=== PATIENT | male | born 1985 | race Caucasian/White ===

== ENCOUNTER 2021-10-19 21:34 | Inpatient (IN) | payer MEDICAID ==
[~2021-10-19] VITALS: Ht 167.6 cm; Wt 57.7 kg
[~2021-10-19 21:34] MED LIST: CHLO25CA10 PO; FOLI-43 PO; THIA100T72 PO
[2021-10-19] MEDS ORDERED: SODIUM CHLORIDE 0.9% 1,000 ML IV ONE (22:15)
[2021-10-19 23:11] LABS: CHLORIDE 108 mEq/L (98-107)
[2021-10-19 23:12] LABS: BASOPHILS % 0.7 % (0.0-2.0); EOSINOPHILS % 1.5 % (0.0-5.0); HEMATOCRIT. 33.9 % (42.0-52.0); HEMOGLOBIN. 11.9 g/dL (14.0-18.0); LYMPHOCYTES % 50.1 % (20.0-50.0); MEAN CORPUSCULAR HEMOGLOBIN 36.2 pg (28.0-32.0); MEAN CORPUSCULAR VOLUME 103.1 fL (80.0-94.0); MEAN PLATELET VOLUME 9.5 fl (7.4-10.4); MONOCYTES % 6.9 % (2.0-8.0); NEUTROPHILS % 40.8 % (40.0-76.0); RED BLOOD CELL COUNT 3.29 mill/uL (4.7-6.1); RED CELL DISTRIBUTION WIDTH 13.8 % (11.6-14.6)
[2021-10-19 23:24] LABS: ETHANOL BLOOD 453 mg/dL
[2021-10-20] MEDS ORDERED: ONDANSETRON HCL 4MG/2ML INJ IV PRN (03:30)
[2021-10-20] MEDS ORDERED: GUAIFENESIN 200MG/10ML SUGAR FREE UDC PO PRN (03:30)
[2021-10-20] MEDS ORDERED: ACETAMINOPHEN 325MG TABLET PO PRN ×2 (03:30)
[2021-10-20] MEDS ORDERED: LORAZEPAM 2MG/ML CPJ IV PRN (03:30)
[2021-10-20] MEDS ORDERED: MAGNESIUM/ALUMINUM HYDROXIDE/SIMETHICONE 30ML UDC PO PRN (03:30)
[2021-10-20] MEDS ORDERED: CLONIDINE 0.1MG TABLET PO PRN (03:30)
[2021-10-20] MEDS: SODIUM CHLORIDE 0.45% 1,000 ML IV SCH ×3 (06:41→23:22)
[2021-10-20] MEDS: THIAMINE HCL 100MG TABLET PO SCH (06:42)
[2021-10-20 07:06] LABS: BASOPHILS % 0.7 % (0.0-2.0); EOSINOPHILS % 1.8 % (0.0-5.0); HEMATOCRIT. 35.1 % (42.0-52.0); HEMOGLOBIN. 12.3 g/dL (14.0-18.0); LYMPHOCYTES % 56.6 % (20.0-50.0); MEAN CORPUSCULAR HEMOGLOBIN 36.4 pg (28.0-32.0); MEAN CORPUSCULAR VOLUME 103.6 fL (80.0-94.0); MEAN PLATELET VOLUME 9.3 fl (7.4-10.4); MONOCYTES % 7.2 % (2.0-8.0); NEUTROPHILS % 33.7 % (40.0-76.0); RED BLOOD CELL COUNT 3.39 mill/uL (4.7-6.1); RED CELL DISTRIBUTION WIDTH 14.2 % (11.6-14.6)
[2021-10-20 07:08] LABS: CHLORIDE 112 mEq/L (98-107)
[2021-10-20 07:18] LABS: PHOSPHORUS 3.8 mg/dL (2.5-4.9)
[2021-10-20 07:27] LABS: PLATELET 21 x1000/uL (130-400)
[2021-10-20 08:55] LABS: CLARITY URINE CLEAR (CLEAR); COLOR URINE YELLOW (YELLOW); KETONES URINE NEGATIVE (NEGATIVE); LEUKOCYTE ESTERASE URINE NEGATIVE (NEGATIVE); NITRITE URINE NEGATIVE (NEGATIVE); OCCULT BLOOD URINE NEGATIVE (NEGATIVE); PH URINE 6.5 (4.5-8.0); PROTEIN URINE NEGATIVE (NEGATIVE); SPECIFIC GRAVITY URINE 1.012 (1.005-1.030)
[2021-10-20 09:24] LABS: *AMPHETAMINES SCREEN URINE NEGATIVE (NEGATIVE); *BARBITURATES SCREEN URINE NEGATIVE (NEGATIVE); *BENZODIAZEPINES SCREEN URINE NEGATIVE (NEGATIVE); *COCAINE SCREEN URINE NEGATIVE (NEGATIVE); OPIATES URINE SCREEN NEGATIVE (NEGATIVE); PHENCYCLIDINE URINE SCREEN NEGATIVE (NEGATIVE)
[2021-10-20 09:25] LABS: CANNABINOID URINE SCREEN NEGATIVE (NEGATIVE)
[2021-10-20 09:32] LABS: METHADONE URINE SCREEN NEGATIVE (NEGATIVE)
[2021-10-20 09:52] VITALS: BP 105/58
[2021-10-20 11:30] LABS: PLATELET 19 x1000/uL (130-400); PLATELET ESTIMATE MARKEDLY DECREASED
[2021-10-20 12:00] VITALS: BP 117/57
[2021-10-20] MEDS ORDERED: INFLUENZA VACCINE 05/PF 0.5 ML SYRINGE IM ONE (15:00)
[2021-10-20] MEDS ORDERED: PNEUMOCOCCAL 23-VAL P-SAC VAC 0.5 ML IM ONE (15:00)
[2021-10-20 16:00] VITALS: BP 107/55
[2021-10-20 20:00] VITALS: BP 111/60
[2021-10-21] VITALS (7 sets, daily range): BP systolic 110–120; BP diastolic 53–76
[2021-10-21 06:35] LABS: INR 1.6
[2021-10-21 06:50] LABS: BASOPHILS % 0.4 % (0.0-2.0); HEMATOCRIT. 32.9 % (42.0-52.0); HEMOGLOBIN. 11.5 g/dL (14.0-18.0); LYMPHOCYTES % 42.4 % (20.0-50.0); MEAN CORPUSCULAR HEMOGLOBIN 36.5 pg (28.0-32.0); MEAN CORPUSCULAR VOLUME 104.7 fL (80.0-94.0); MEAN PLATELET VOLUME 9.5 fl (7.4-10.4); MONOCYTES % 7.6 % (2.0-8.0); NEUTROPHILS % 47.6 % (40.0-76.0); RED BLOOD CELL COUNT 3.15 mill/uL (4.7-6.1); RED CELL DISTRIBUTION WIDTH 14.1 % (11.6-14.6)
[2021-10-21 07:34] LABS: CHLORIDE 105 mEq/L (98-107)
[2021-10-21 07:44] LABS: TOTAL IRON BINDING CAPACITY 244 ug/dL (250-450)
[2021-10-21 07:46] LABS: PHOSPHORUS 2.8 mg/dL (2.5-4.9)
[2021-10-21 08:53] LABS: PLATELET 15 x1000/uL (130-400)
[2021-10-21] MEDS: SODIUM CHLORIDE 0.45% 1,000 ML IV SCH ×2 (09:50→20:58)
[2021-10-21] MEDS: THIAMINE HCL 100MG TABLET PO SCH (09:50)
[2021-10-21 13:04] LABS: HEPATITIS B SURFACE ANTIGEN NEGATIVE
[2021-10-21 15:58] LABS: VITAMIN B12 SERUM > 2000.0 pg/mL (211-911)
[2021-10-22] VITALS (8 sets, daily range): BP systolic 107–123; BP diastolic 55–66
[2021-10-22 07:52] LABS: HEMATOCRIT. 30.2 % (42.0-52.0); HEMOGLOBIN. 10.5 g/dL (14.0-18.0); MEAN CORPUSCULAR HEMOGLOBIN 36.3 pg (28.0-32.0); MEAN PLATELET VOLUME 9.1 fl (7.4-10.4); RED BLOOD CELL COUNT 2.91 mill/uL (4.7-6.1); RED CELL DISTRIBUTION WIDTH 13.8 % (11.6-14.6)
[2021-10-22 08:04] LABS: INR 1.5; PROTHROMBIN TIME 15.8 sec (9.6-11.0)
[2021-10-22 08:13] LABS: CHLORIDE 107 mEq/L (98-107)
[2021-10-22 08:24] LABS: PHOSPHORUS 2.4 mg/dL (2.5-4.9)
[2021-10-22] MEDS: THIAMINE HCL 100MG TABLET PO SCH (08:33)
[2021-10-22 09:51] LABS: PLATELET 12 x1000/uL (130-400)
[2021-10-22] MEDS: SODIUM CHLORIDE 0.45% 1,000 ML IV SCH (14:52)
[2021-10-22] MEDS ORDERED: THIA100T72 PO (15:13)
[2021-10-22 18:14] LABS: PLATELET ESTIMATE MARKEDLY DECREASED
== END 2021-10-22 16:08 | disposition home or self-care (01) | DRG 52 ==
LOC: ER 21:34 → 8WST 10-20 00:26 → SUPCPDRO 10-20 03:26
PROVIDERS: ADMIT Internal Medicine; ATTEND Internal Medicine
PROC: 30233R1 Transfusion of Nonautologous Platelets into Peripheral Vein, Percutaneous Approach (ICD-10-PCS; principal; 2021-10-22)
DX: G92.9 Unspecified toxic encephalopathy (principal); D61.818 Other pancytopenia; K76.0 Fatty (change of) liver, not elsewhere classified; R25.1 Tremor, unspecified; F10.229 Alcohol dependence with intoxication, unspecified; D53.9 Nutritional anemia, unspecified; Y90.8 Blood alcohol level of 240 mg/100 ml or more; R74.01 Elevation of levels of liver transaminase levels; Z20.822 Contact with and (suspected) exposure to COVID-19
CPT/HCPCS: 36415; 76700; 80048; 80053; 80076; 80305; 80320; 81003; 82248; 82607; 82728; 82746; 83540; 83550; 83735; 84100; 85025; 85049; 86705; 86709; 86803; 86850; 86900; 87340; 87426; 90686; 90732; 93005; 99285; J2405; J7030; P9034; G0480

== ENCOUNTER 2021-11-20 22:17 | Emergency (ER) | payer MEDICAID ==
[~2021-11-20] VITALS: Ht 167.6 cm; Wt 70.0 kg
[~2021-11-20 22:17] MED LIST changes: -CHLO25CA10 PO; -FOLI-43 PO
[2021-11-20 22:24] VITALS: BP 120/78
[2021-11-20] MEDS ORDERED: OXYMETAZOLINE HCL NASAL SPRAY 15ML BOTHNSTRLS PRN (22:45)
[2021-11-20] MEDS ORDERED: OXYM30SP26 BOTHNSTRLS (23:29)
== END 2021-11-20 23:36 | disposition home or self-care (01) ==
LOC: ER 22:17
DX: R04.0 Epistaxis (principal)
CPT/HCPCS: 99283

== ENCOUNTER 2023-07-26 14:19 | Emergency (ER) | payer MEDICAID ==
[~2023-07-26] VITALS: Ht 170.2 cm; Wt 75.0 kg
[~2023-07-26 14:19] MED LIST changes: +OXYM30SP26 BOTHNSTRLS
[2023-07-26 14:21] VITALS: O2SAT 98
[2023-07-26 16:45] VITALS: BP 106/80; PULSE 99; RESP 16; TEMP 98.5
== END 2023-07-26 16:52 | disposition home or self-care (01) ==
LOC: ER 14:19
DX: S01.01XA Laceration without foreign body of scalp, initial encounter (principal); F10.129 Alcohol abuse with intoxication, unspecified; Y08.89XA Assault by other specified means, initial encounter; Y93.89 Activity, other specified; Y92.89 Other specified places as the place of occurrence of the external cause; Y99.8 Other external cause status; Y90.8 Blood alcohol level of 240 mg/100 ml or more
CPT/HCPCS: 70450; 99284; Z7610 ×2

== ENCOUNTER 2025-01-29 23:31 | Inpatient (IN) | payer SELFPAY ==
[~2025-01-29] VITALS: Ht 167.6 cm; Wt 77.1 kg
[2025-01-30] MEDS: KETOROLAC 15MG/ML VIAL IM ONE (00:56)
[2025-01-30] MEDS ORDERED: LIDOCAINE HCL 1% 20ML VIAL INFIL ONE (02:30)
[2025-01-30] MEDS ORDERED: TETANUS, DIPHTHERIA, PERTUSSIS VAC/PF 0.5ML (>10YR OLD) IM ONE (02:30)
[2025-01-30 02:45] LABS: HEMATOCRIT. 29.2 % (42.0-52.0); MEAN CORPUSCULAR HEMOGLOBIN 32.9 pg (28.0-32.0); MEAN CORPUSCULAR HGB CONC 34.1 g/dL (31.0-37.0); MEAN CORPUSCULAR VOLUME 96.4 fL (80.0-94.0); MEAN PLATELET VOLUME 8.4 fl (7.4-10.4); RED BLOOD CELL COUNT 3.03 mill/uL (4.7-6.1); RED CELL DISTRIBUTION WIDTH 12.9 % (11.6-14.6); WHITE BLOOD COUNT 4.2 x1000/uL (4.5-11.0)
[2025-01-30 03:03] LABS: CHLORIDE 105 mEq/L (98-107); POTASSIUM 3.9 mEq/L (3.5-5.1); SODIUM 137 mEq/L (136-145)
[2025-01-30 03:04] LABS: CALCIUM 8.3 mg/dL (8.7-10.4); CARBON DIOXIDE 25 mEq/L (21-32)
[2025-01-30 03:09] LABS: CREATININE 0.6 mg/dL (0.6-1.3); GLUCOSE 106 mg/dL (70-105); UREA NITROGEN BLOOD 18 mg/dL (9-23)
[2025-01-30] MEDS ORDERED: CEFTRIAXONE SODIUM 1G VIAL IM ONE (03:15)
[2025-01-30] MEDS ORDERED: ONDANSETRON HCL 4MG/2ML INJ IV PRN (03:30)
[2025-01-30] MEDS ORDERED: IPRATROPIUM/ALBUTEROL 0.5-3(2.5)MG/3ML NEB HHN PRN (03:30)
[2025-01-30] MEDS ORDERED: DOCUSATE SODIUM 100MG CAPSULE PO PRN (03:30)
[2025-01-30] MEDS ORDERED: GUAIFENESIN 200MG/10ML SUGAR FREE UDC PO PRN (03:30)
[2025-01-30] MEDS ORDERED: CLONIDINE 0.1MG TABLET PO PRN (03:30)
[2025-01-30] MEDS ORDERED: ZOLPIDEM TARTRATE 5MG TABLET PO PRN (03:30)
[2025-01-30] MEDS ORDERED: MAGNESIUM/ALUMINUM HYDROXIDE/SIMETHICONE 30ML UDC PO PRN (03:30)
[2025-01-30 04:01] LABS: DIFFERENTIAL COMMENT 1
[2025-01-30 04:03] LABS: PLATELET 42 x1000/uL (130-400)
[2025-01-30 05:10] VITALS: BP 140/78; PULSE 72; RESP 18; TEMP 36.8
[2025-01-30 05:20] LABS: CLARITY URINE CLEAR (CLEAR); COLOR URINE YELLOW (YELLOW); GLUCOSE URINE NEGATIVE (NEGATIVE); KETONES URINE NEGATIVE (NEGATIVE); LEUKOCYTE ESTERASE URINE NEGATIVE (NEGATIVE); NITRITE URINE POSITIVE (NEGATIVE); OCCULT BLOOD URINE 2+ (NEGATIVE); PROTEIN URINE TRACE (NEGATIVE); SPECIFIC GRAVITY URINE 1.011 (1.005-1.030); UROBILINOGEN URINE 0.2 E.U./dL (0.2-1.0)
[2025-01-30 05:32] LABS: *AMPHETAMINES SCREEN URINE NEGATIVE (NEGATIVE); *BARBITURATES SCREEN URINE NEGATIVE (NEGATIVE); *BENZODIAZEPINES SCREEN URINE NEGATIVE (NEGATIVE); *COCAINE SCREEN URINE NEGATIVE (NEGATIVE)
[2025-01-30 05:33] LABS: CANNABINOID URINE SCREEN NEGATIVE (NEGATIVE); ECSTASY MDMA SCREEN URINE NEGATIVE (NEGATIVE); METHADONE URINE SCREEN NEGATIVE (NEGATIVE); OPIATES URINE SCREEN NEGATIVE (NEGATIVE); PHENCYCLIDINE URINE SCREEN NEGATIVE (NEGATIVE)
[2025-01-30 05:34] LABS: SQUAMOUS EPITHELIAL CELL URINE NONE SEEN /lpf (RARE/1+)
[2025-01-30 05:37] LABS: WBC URINE 0-2 /hpf (0-2)
[2025-01-30 05:38] LABS: BACTERIA URINE 3+
[2025-01-30 05:40] VITALS: BP 140/78; PULSE 68; RESP 19; TEMP 37.1; O2SAT 98
[2025-01-30] MEDS: HYDROCODONE/ACETAMINOPHEN 5/325MG TABLET PO PRN (05:41)
[2025-01-30] MEDS: CEFTRIAXONE 1GM/50ML 50 ML IV SCH (06:50)
[2025-01-30] MEDS: PANTOPRAZOLE 40MG DR TABLET PO SCH (06:53)
[2025-01-30 08:00] VITALS: BP 136/70; PULSE 67; RESP 18; TEMP 36.2; O2SAT 100
[2025-01-30] MEDS: ACETAMINOPHEN 325MG TABLET PO PRN (08:14)
[2025-01-30 08:45] LABS: PLATELET ESTIMATE MARKEDLY DECREASED
[2025-01-30 09:11] LABS: TRIGLYCERIDE 45 mg/dL (0-150)
[2025-01-30 09:12] LABS: LDL CHOLESTEROL 30 mg/dL (5-100)
[2025-01-30 09:13] LABS: ALANINE AMINOTRANSFERASE 19 IU/L (10-49); ALBUMIN 3.4 g/dL (3.2-4.8); ASPARTATE AMINOTRANSFERASE 26 IU/L (<34); BILIRUBIN DIRECT 0.2 mg/dL (<=3.0); BILIRUBIN TOTAL 0.5 mg/dL (0.1-1.0); CHOLESTEROL 85 mg/dL (<200); HDL CHOLESTEROL 40 mg/dL (>55); PROTEIN TOTAL 6.5 g/dL (6.0-8.3)
[2025-01-30 09:15] LABS: T4 FREE 0.82 ng/dL (0.89-1.76)
[2025-01-30 09:16] LABS: THYROID STIMULATING HORMONE 2.31 uIU/mL (0.55-4.78)
[2025-01-30 10:50] LABS: URIC ACID 3.9 mg/dL (3.7-9.2)
[2025-01-30 10:53] LABS: ALBUMIN 3.4 g/dL (3.2-4.8); CREATINE KINASE 99 IU/L (46-171); TOTAL IRON BINDING CAPACITY 312 ug/dl (250-425)
[2025-01-30] MEDS ORDERED: NALOXONE HCL 0.4MG/ML VIAL IV PRN (11:00)
[2025-01-30] MEDS: DOXYCYCLINE 100MG/100ML 100 ML IV SCH (11:05)
[2025-01-30 12:00] VITALS: BP 122/65; PULSE 73; RESP 18; TEMP 36.4; O2SAT 100
[2025-01-30] MEDS: IBUPROFEN 400MG TABLET PO PRN (13:01)
[2025-01-30 13:59] LABS: IRON 61 ug/dL (65-175)
[2025-01-30] MEDS: MORPHINE SULFATE 4 MG/ML INJ (FOR IV/IM USE) IV PRN (15:11)
[2025-01-30 15:26] LABS: FERRITIN 36 ng/mL (22-322)
[2025-01-30 15:27] LABS: FOLIC ACID (FOLATE) SERUM 16.14 ng/mL (>5.38)
[2025-01-30 15:30] LABS: VITAMIN B12 SERUM > 2000 pg/mL (211-911)
[2025-01-30 15:31] LABS: TROPONIN I HIGH SENSITIVITY < 4 ng/L (3.0-53)
[2025-01-30 15:39] LABS: HEPATITIS B SURFACE ANTIGEN NEGATIVE (Negative)
[2025-01-30 16:00] VITALS: BP 113/58; PULSE 73; RESP 16; TEMP 36.1; O2SAT 100
[2025-01-30 16:00] LABS: HEPATITIS B CORE AB IGM NEGATIVE (Negative); HEPATITIS C AB NON REACTIVE (Neg) (Negative)
[2025-01-30 18:40] LABS: TROPONIN I HIGH SENSITIVITY < 4 ng/L (3.0-53)
[2025-01-30 20:00] VITALS: BP 120/72; PULSE 70; RESP 18; TEMP 38.2; O2SAT 100
[2025-01-31] VITALS (7 sets, daily range): BP systolic 116–132; BP diastolic 63–75; PULSE 62–91; RESP 17–20; TEMP 35.9–38.5; O2SAT 98–100
[2025-01-31] MEDS: ACETAMINOPHEN 325MG TABLET PO PRN (00:37)
[2025-01-31] MEDS: HYDROCODONE/ACETAMINOPHEN 5/325MG TABLET PO PRN (08:51)
[2025-01-31] MEDS ORDERED: IBUP-2437 MT (16:37)
[2025-01-31] MEDS ORDERED: LEVO750T68 MT (16:46)
[2025-02-01 04:07] LABS: CHLAMYDIA TRACHOMATIS NAA Negative (Negative); NEISSERIA GONORRHOEAE NAA Negative (Negative)
== END 2025-01-31 18:11 | disposition home or self-care (01) | DRG 351 ==
LOC: ER 23:31 → EDBEDREQ 01-30 02:25 → 6EST 01-30 03:06 → EDBEDREQ 01-30 03:07
PROVIDERS: ADMIT Internal Medicine; ATTEND Internal Medicine
PROC: 0S9D3ZZ Drainage of Left Knee Joint, Percutaneous Approach (ICD-10-PCS; principal; 2025-01-30)
DX: M25.462 Effusion, left knee (principal); D69.6 Thrombocytopenia, unspecified; D64.9 Anemia, unspecified; F10.90 Alcohol use, unspecified, uncomplicated; Y90.9 Presence of alcohol in blood, level not specified; Z79.899 Other long term (current) drug therapy
CPT/HCPCS: 36415; 73562; 80048; 80061; 80076; 80305; 81003; 82040; 82550; 82607; 82728; 82746; 83036; 83540; 83550; 84439; 84443; 84484; 84550; 85025; 86705; 87340; 87491; 87591; 99285; A4606; J0696; J1885; J2270; J3490